=== PATIENT | female | born 1990 | race Caucasian/White ===

== ENCOUNTER 2019-04-26 13:07 | Outpatient (CLI) | payer OTHER ==
[2019-04-26] MEDS ORDERED: OMNIPAQUE 350 MG/ML, 100ML BOTTLE ONE (14:07)
== END 2019-04-26 23:59 | disposition home or self-care (01) ==
LOC: CFH 13:07
PROVIDERS: ATTEND Urology
DX: R91.8 Other nonspecific abnormal finding of lung field (principal); N28.89 Other specified disorders of kidney and ureter; Z85.528 Personal history of other malignant neoplasm of kidney
CPT/HCPCS: 71260; 74178; Q9967